=== PATIENT | male | born 1990 | race Caucasian/White ===

== ENCOUNTER 2020-09-03 18:26 | Emergency (ER) | payer OTHER ==
[2020-09-03] MEDS ORDERED: HYDROmorphone 1 MG/ML Syringe ONE (18:43)
[2020-09-03] MEDS ORDERED: HYDROmorphone 1 MG/ML Syringe IVPUSH ONE ×2 (18:47→19:25)
[2020-09-03] MEDS ORDERED: LORazepam 2 MG/ML SDV IVPUSH ONE (18:51)
[2020-09-03] MEDS ORDERED: LORazepam 2 MG/ML SDV ONE (18:52)
--- NOTE | 2020-09-03 19:07 | EDM.PDOC ---
<Harris Sierra - Last Filed: 09/03/20 21:19> ED HPI GENERAL MEDICAL PROBLEM - General Chief Complaint: Back Pain or Injury Stated Complaint: BACK PAIN FROM FALL Time Seen by Provider: 09/03/20 18:44 - Related Data Allergies Allergy/AdvReac Type Severity Reaction Status Date / Time No Known Allergies Allergy Verified 09/03/20 18:38 Home Meds: Home Meds Acetaminophen/HYDROcodone [Franklin 325-10 MG] 1 tab PO Q4H PRN 3 Days #14 tab 09/03/20 [Rx] Chlorzoxazone 500 mg PO TID PRN 3 Days #14 tablet 09/03/20 [Rx] Cyclobenzaprine [Flexeril] 10 mg PO TID PRN 3 Days #14 tab 09/03/20 [Rx] Course - Vital Signs Text/Narrative:: 1914 I accepted this patient from my partner who shift ended. The patient is e xperiencing back pain but no acute neurologic deficit. His pain is partially relieved with the medications provided earlier. He is ready to go to CT. CT lab and a reexam indicate no significant internal injury or fracture. Patient was discharged in satisfactory condition and told that if he ended up being on pain medicine or muscle relaxers are having significant limitation past 3 days he needed to be seen by someone else. I gave him a work note for 3 days and advised to follow-up in the clinic. Departure - Departure Time of Disposition: 21:30 Disposition: Home, Self-Care 01 Condition: Good Clinical Impression: Fall, Contusion of lower back, Contusion, hip - Discharge Information Prescriptions: Chlorzoxazone 500 mg PO TID PRN 3 Days #14 tablet PRN Reason: Spasms Cyclobenzaprine [Flexeril] 10 mg PO TID PRN 3 Days #14 tab PRN Reason: Spasms Acetaminophen/HYDROcodone [Franklin 325-10 MG] 1 tab PO Q4H PRN 3 Days #14 tab PRN Reason: Pain (Severe 7-10) Instructions: Hip Sprain, Back Exercises, [id number] Referrals: PCP,None [Primary Care Provider] - Forms: ED Department Discharge Additional Instructions: It is unlikely you will have any significant spinal cord involvement in this injury based on the CT scans and exam. If you lose control of your bowel or bladder, cannot feel the area where you sit or your legs, cannot move your legs thighs or feet, then you cannot wait to see if it gets better but must return immediately and you would probably be flown for an urgent MRI. Again, this is very unlikely and I do not expect this to happen. Fact the more active you are with flexion and movement the better you will be in the long- term. Urgency department can only suggest 3 days off to take pain medicine and muscle relaxers. You may need more than that. Call the clinic tomorrow and make an appointment for Monday so that they can reexamine and release you for full duty. [facility] [address] [place] [id number] [facility] [address] [place] [id number] [facility] Professional Building [address] [place] [address], [address] [place] [address] The following information is given to patients seen in the emergency department who are being discharged to home. This information is to outline your options for follow-up care. We provide all patients seen in our emergency department with a follow-up referral. The need for follow-up, as well as the timing and circumstances, are variable depending upon the specifics of your emergency department visit. If you don't have a primary care physician on staff, we will provide you with a referral. We always advise you to contact your personal physician following an emergency department visit to inform them of the circumstance of the visit and for follow-up with them and/or the need for any referrals to a consulting specialist. The emergency department will also refer you to a specialist when appropriate. This referral assures that you have the opportunity for follow-up care with a specialist. All of these measure are taken in an effort to provide you with optimal care, which includes your follow-up. Under all circumstances we always encourage you to contact your private physician who remains a resource for coordinating your care. When calling for follow-up care, please make the office aware that this follow-up is from your recent emergency room visit. If for any reason you are refused follow-up, please contact the [facility] Emergency Department at and asked to speak to the emergency department charge nurse. <Chandra Friedman - Last Filed: 09/04/20 07:06> ED HPI GENERAL MEDICAL PROBLEM - History of Present Illness INITIAL COMMENTS - FREE TEXT/NARRATIVE: CHIEF COMPLAINT(S): Fall HISTORY OF PRESENT ILLNESS: This is a 30-year-old man with a past medical history of asthma who comes to the emergency department with a chief complaint of fall. 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 He states that he landed on his feet and he is experiencing extreme back pain and right hip pain. He denies any bowel incontinence or urinary retention. He denies any neck pain, chest pain, abdominal pain, nausea or vomiting. He denies any use of oral anticoagulation. He rates his pain as 10 out of 10 and located directly over his thoracic and lumbar spine. He denies any radiation of the pain. He states that the pain is constant. He denies any relieving symptoms. He states that it is exacerbated by movement. The patient denies any head injury or loss of consciousness. REVIEW OF SYSTEMS: Constitutional: Denies fever, chills. Eyes: Denies eye pain Ears, Nose, Mouth, & Throat: Denies earache Cardiovascular: Denies chest pain Respiratory: Denies shortness of breath Gastrointestinal: Denies Nausea, vomiting, diarrhea, hematochezia. Bowel incontinence, abdominal pain Genitourinary: Denies hematuria urinary incontinence MSK: Positive for back and hip pain. Neurological: Denies blurred vision numbness, tingling, weakness Psychiatric: Denies depression PAST MEDICAL HISTORY: As per history of present illness and as reviewed below otherwise noncontributory. SURGICAL HISTORY: As per history of present illness and as reviewed below otherwise noncontributory. SOCIAL HISTORY: As per history of present illness and as reviewed below otherwise noncontributory. FAMILY HISTORY: As per history of present illness and as reviewed below otherwise noncontributory. EXAMINATION OF ORGAN SYSTEMS/BODY AREAS: Constitutional: Blood pressure is 137/91, heart rate 90, respiratory rate 20 with an oxygen saturation 100% on room air. Temperature 37.4 General: Young man who is visibly in pain. Psychiatric: Appropriate mood and affect. Eyes: No scleral icterus or conjunctival erythema pupils equal round reactive to light. Extraocular movements intact. ENMT: Moist mucous membranes. No pharyngeal erythema no blood in the oropharynx or missed or chipped teeth. Cardiovascular: Regular, rate, and rhythm. No gallops, murmurs, or rubs. Bilateral upper extremity and lower extremity pulses symmetric and intact. No peripheral edema. No JVD. Respiratory: Lungs clear to auscultation bilaterally. No wheezes, rales, or rhonchi. Gastrointestinal: Soft, non-tender, non-distended. Normoactive bowel sounds no rebound or guarding Genitourinary: No suprapubic tenderness Musculoskeletal: There is tenderness to palpation along the right hip extending posteriorly. There is some midline thoracic and lumbar tenderness. No midline cervical tenderness. Skin: There is an area of bruising on the patient's right posterior flank. Neurological: Alert, GCS 15 distal sensation is intact in all distribution in all extremities. Strength exam limited secondary to pain. MEDICAL DECISION MAKING AND COURSE IN THE ED WITH INTERPRETATION/REVIEW OF DIAGNOSTIC STUDIES: This is a 30-year-old man and with a past medical history of asthma who comes to the emergency department with back pain and right hip pain status post fall from 6 feet onto his feet. At this time given his fall and d egree of pain we will obtain CT C-spine, CT thoracic spine, and CT lumbar spine. Will obtain a pelvic x-ray to evaluate for hip or pelvic fracture. Given the bruising on it exam we will obtain a CT abdomen pelvis with IV contrast for further evaluation of intra-abdominal pathology. Will obtain labs including CBC, CMP, lipase, and coags. We will provide the patient with 1 mg of IV Dilaudid and 2 mg of IV Ativan. DISPOSITION: Patient was signed out to oncoming night team physician pending laboratory analysis and imaging CONDITION: Fair PROCEDURES: None FINAL IMPRESSION(S)/DIAGNOSES: 1. Acute mechanical fall 2. Acute thoracic back pain 3. Acute lumbar back pain 4. Acute right hip pain 5. Acute right flank ecchymosis Chandra Friedman M.D. Middle Back Pain Score (Numeric/FACES): 10 Past Medical History - Past Health History Medical/Surgical History: Denies Medical/Surgical History - Infectious Disease History Infectious Disease History: Reports: None Social & Family History - Tobacco Use Tobacco Use Status *Q: Current Every Day Tobacco User Years of Tobacco use: 16 Packs/Tins Daily: 1 - Caffeine Use Caffeine Use: Reports: None - Recreational Drug Use Recreational Drug Use: No ED ROS GENERAL - Review of Systems Review Of Systems: See Below ED EXAM, GENERAL - Physical Exam Exam: See Below Course - Vital Signs Last Recorded V/S: Last Vital Signs Temp 37.4 C 09/03/20 18:39 Pulse 96 09/03/20 21:40 Resp 18 09/03/20 21:40 BP 117/53 L 09/03/20 21:40 Pulse Ox 99 09/03/20 21:40 - Orders/Labs/Meds Labs: Laboratory Tests 09/03/20 09/03/20 09/03/20 Range/Units 18:46 18:46 18:46 WBC 11.20 H (4.0-11.0) K/uL RBC 5.39 (4.50-5.90) M/uL Hgb 14.3 (13.0-17.0) g/dL Hct 43.9 (38.0-50.0) % MCV 81.4 (80.0-98.0) fL MCH 26.5 L (27.0-32.0) pg MCHC 32.6 (31.0-37.0) g/dL RDW Std Deviation 41.3 (28.0-62.0) fl RDW Coeff of Rubio 14 (11.0-15.0) % Plt Count 238 (150-400) K/uL MPV 10.20 (7.40-12.00) fL Neut % (Auto) 63.8 (48.0-80.0) % Lymph % (Auto) 27.1 (16.0-40.0) % Barnes % (Auto) 7.6 (0.0-15.0) % Eos % (Auto) 1.1 (0.0-7.0) % Baso % (Auto) 0.4 (0.0-1.5) % Neut # (Auto) 7.1 H (1.4-5.7) K/uL Lymph # (Auto) 3.0 H (0.6-2.4) K/uL Barnes # (Auto) 0.9 H (0.0-0.8) K/uL Eos # (Auto) 0.1 (0.0-0.7) K/uL Baso # (Auto) 0.1 (0.0-0.1) K/uL Nucleated RBC % 0.0 /100WBC Nucleated RBCs # 0 K/uL INR 1.00 Sodium 139 (136-148) mmol/L Potassium 3.8 (3.5-5.1) mmol/L Chloride 103 (98-107) mmol/L Carbon Dioxide 25.1 (21.0-32.0) mmol/L BUN 20 H (7.0-18.0) mg/dL Creatinine 0.9 (0.8-1.3) mg/dL Est Cr Clr Drug Dosing 122.79 mL/min Estimated GFR (MDRD) > 60.0 ml/min Glucose 111 H (74-106) mg/dL Calcium 9.3 (8.5-10.1) mg/dL Total Bilirubin 0.2 (0.2-1.0) mg/dL AST 31 (15-37) IU/L ALT 72 H (14-63) IU/L Alkaline Phosphatase 75 (46-116) U/L Total Protein 7.8 (6.4-8.2) g/dL Albumin 4.5 (3.4-5.0) g/dL Globulin 3.3 (2.6-4.0) g/dL Albumin/Globulin Ratio 1.4 (0.9-1.6) Lipase 129 (73-393) U/L Blood Type Antibody Screen 09/03/20 Range/Units 19:16 WBC (4.0-11.0) K/uL RBC (4.50-5.90) M/uL Hgb (13.0-17.0) g/dL Hct (38.0-50.0) % MCV (80.0-98.0) fL MCH (27.0-32.0) pg MCHC (31.0-37.0) g/dL RDW Std Deviation (28.0-62.0) fl RDW Coeff of Rubio (11.0-15.0) % Plt Count (150-400) K/uL MPV (7.40-12.00) fL Neut % (Auto) (48.0-80.0) % Lymph % (Auto) (16.0-40.0) % Barnes % (Auto) (0.0-15.0) % Eos % (Auto) (0.0-7.0) % Baso % (Auto) (0.0-1.5) % Neut # (Auto) (1.4-5.7) K/uL Lymph # (Auto) (0.6-2.4) K/uL Barnes # (Auto) (0.0-0.8) K/uL Eos # (Auto) (0.0-0.7) K/uL Baso # (Auto) (0.0-0.1) K/uL Nucleated RBC % /100WBC Nucleated RBCs # K/uL INR Sodium (136-148) mmol/L Potassium (3.5-5.1) mmol/L Chloride (98-107) mmol/L Carbon Dioxide (21.0-32.0) mmol/L BUN (7.0-18.0) mg/dL Creatinine (0.8-1.3) mg/dL Est Cr Clr Drug Dosing mL/min Estimated GFR (MDRD) ml/min Glucose (74-106) mg/dL Calcium (8.5-10.1) mg/dL Total Bilirubin (0.2-1.0) mg/dL AST (15-37) IU/L ALT (14-63) IU/L Alkaline Phosphatase (46-116) U/L Total Protein (6.4-8.2) g/dL Albumin (3.4-5.0) g/dL Globulin (2.6-4.0) g/dL Albumin/Globulin Ratio (0.9-1.6) Lipase (73-393) U/L Blood Type O POSITIVE Antibody Screen NEGATIVE Meds: Medications Discontinued Medications Generic Name Dose Route Start Last Admin Trade Name Freq PRN Reason Stop Dose Admin Hydromorphone HCl Confirm 09/03/20 18:43 09/03/20 18:50 Dilaudid Administered 09/03/20 18:44 Not Given Dose 1 mg .ROUTE .STK-MED ONE Hydromorphone HCl 1 mg 09/03/20 18:47 09/03/20 18:50 Dilaudid IVPUSH 09/03/20 18:48 1 mg ONETIME ONE Administration Hydromorphone HCl 1 mg 09/03/20 19:25 09/03/20 19:31 Dilaudid IVPUSH 09/03/20 19:26 1 mg ONETIME ONE Administration Iopamidol 100 ml 09/03/20 20:03 09/03/20 20:03 Isovue Multipack-370 (76%) IVPUSH 09/03/20 20:04 100 ml ONETIME STA Administration Lorazepam 2 mg 09/03/20 18:51 09/03/20 18:52 Ativan IVPUSH 09/03/20 18:52 2 mg ONETIME ONE Administration Lorazepam Confirm 09/03/20 18:52 09/03/20 18:55 Ativan Administered 09/03/20 18:53 Not Given Dose 2 mg .ROUTE .STK-MED ONE Ondansetron HCl 4 mg 09/03/20 19:25 09/03/20 19:29 Zofran IVPUSH 09/03/20 19:26 4 mg ONETIME ONE Administration Sepsis Event Note (ED) - Evaluation Sepsis Screening Result: No Definite Risk - Focused Exam Vital Signs: Vital Signs Pulse Resp BP Pulse Ox 09/03/20 21:40 96 18 117/53 L 99 09/03/20 20:52 70 16 117/80 96 09/03/20 20:08 84 16 114/66 95 09/03/20 19:10 83 16 109/70 96
[2020-09-03 19:17] LABS: BLOOD UREA NITROGEN,BUN 20 mg/dL (7.0-18.0); CARBON DIOXIDE,CO2 25.1 mmol/L (21.0-32.0); CHLORIDE,CL 103 mmol/L (98-107); GLUCOSE RANDOM 111 mg/dL (74-106); LIPASE 129 U/L (73-393); POTASSIUM,K 3.8 mmol/L (3.5-5.1); SODIUM,NA 139 mmol/L (136-148)
--- NOTE | 2020-09-03 19:24 | CR ---
INDICATION: Fall from 6 feet onto back, pain in right hip. TECHNIQUE: AP pelvis. COMPARISON: None. FINDINGS: No acute fracture. The hips appear normally aligned. The sacroiliac joints are normal in appearance. Pelvic phlebolith. Soft tissues are unremarkable. IMPRESSION: No acute findings. Dictated by Josiane Mandel MD @ Sep 03 2020 7:21PM Signed by Dr. Josiane Mandel @ Sep 03 2020 7:22PM
[2020-09-03] MEDS ORDERED: Ondansetron 4 MG/2 ML SDV IVPUSH ONE (19:25)
[2020-09-03] MEDS ORDERED: Iopamidol 755 MG/ML 500 ML Multipack Bottle IVPUSH STA (20:03)
--- NOTE | 2020-09-03 20:19 | CT ---
INDICATION: Cervical spine injury from fall TECHNIQUE: CT cervical spine without i.v. contrast. Coronal and sagittal reformats were obtained. COMPARISON: None FINDINGS: Alignment: Unremarkable. Bone: No acute fractures or aggressive bone lesions are identified. Disc: The disc spaces are unremarkable in appearance. The facet joints are unremarkable. Soft tissue: The prevertebral soft tissues are unremarkable in appearance. The visualized lung apices and mediastinum are unremarkable. IMPRESSION: 1. No acute osseous injuries are identified. Please note that all CT scans at this facility use dose modulation, iterative reconstruction, and/or weight-based dosing when appropriate to reduce radiation dose to as low as reasonably achievable. Dictated by: Suman Samano MD @ 09/03/2020 20:18:11 (Electronically Signed)
--- NOTE | 2020-09-03 20:29 | CT ---
INDICATION: Pain after fall COMPARISON: None available TECHNIQUE: CT examination of the abdomen and pelvis was performed with the uneventful intravenous administration of 100 cc of Isovue 370 while 3 mm thick axial sections were obtained from the lung bases through the pubic symphysis. Oral contrast was not administered. Please note that all CT scans at this facility use dose modulation, iterative reconstruction, and/or weight-based dosing when appropriate to reduce radiation dose to as low as reasonably achievable. FINDINGS: In the abdomen, the liver, spleen, pancreas, and adrenals are normal in appearance. The kidneys are normal in appearance. The gallbladder is normal in appearance. The abdominal aorta is normal in caliber with no sign of dilatation. There is no sign of retroperitoneal mass or adenopathy. The stomach, loops of small bowel, and colon in the abdomen are normal in appearance. In the pelvis, the appendix is normal in appearance with no sign of inflammatory process. The loops of small bowel and colon in the pelvis are normal in appearance. The uterus and adnexal regions are normal in appearance. The urinary bladder is normal in appearance. There is no sign of pelvic or inguinal mass or adenopathy. There is no sign of free air or free fluid in the abdomen or pelvis. The lung bases are clear. There is mild scoliosis of the thoracolumbar spine convex towards the left. There is no sign of fracture, dislocation, or destructive lesion involving the lumbar spine, pelvis, and hips. IMPRESSION: No sign of acute traumatic injury to the abdomen or pelvis. Normal CT of the abdomen with contrast. Normal CT of the pelvis with contrast. Mild scoliosis of the thoracolumbar spine convex towards the left. Please note that all CT scans at this facility use dose modulation, iterative reconstruction, and/or weight-based dosing when appropriate to reduce radiation dose to as low as reasonably achievable. Dictated by Ziggy Santizo MD @ Sep 03 2020 8:22PM Signed by Dr. Ziggy Santizo @ Sep 03 2020 8:29PM
--- NOTE | 2020-09-03 20:38 | CT ---
INDICATION: Pain after fall COMPARISON: None available TECHNIQUE: : CT examination of the chest was performed with the uneventful intravenous administration of Isovue 370 as part of the accompanying CT of the abdomen and pelvis while 3 mm thick axial sections were obtained from above the apices of the lungs to the lung bases. Please note that all CT scans at this facility use dose modulation, iterative reconstruction, and/or weight-based dosing when appropriate to reduce radiation dose to as low as reasonably achievable. FINDINGS: : The lungs are clear with no sign of significant infiltrate or mass. There is no sign of pneumothorax, pulmonary contusion, pleural hematoma, or pleural effusion. There is no sign of mediastinal or hilar mass or adenopathy. The heart is normal in appearance for the patient`s age, as are the aorta and other ascending great vessels. There is no sign of supraclavicular or axillary mass or adenopathy. The visualized superior liver, spleen, pancreas, kidneys, and adrenals are normal in appearance. There is mild scoliosis of the mid thoracic spine convex towards the right. There is no sign of fracture of the visualized shoulder girdle, ribs, sternum, manubrium, or thoracic spine. There is mild deformity of the superior sternal body, without any fracture lines, and without any parasternal hematoma, findings of an old, healed sternal fracture. IMPRESSION: No sign of acute traumatic injury to the chest. Mild deformity of the superior sternal body consistent with an old, healed fracture. No sign of any acute fracture lines or parasternal hematoma to suggest that this is an acute fracture. Please note that all CT scans at this facility use dose modulation, iterative reconstruction, and/or weight-based dosing when appropriate to reduce radiation dose to as low as reasonably achievable. Dictated by Ziggy Santizo MD @ Sep 03 2020 8:22PM Signed by Dr. Ziggy Santizo @ Sep 03 2020 8:36PM
--- NOTE | 2020-09-03 20:42 | CT ---
INDICATION: Pain after fall COMPARISON: CT of the chest and abdomen from today. TECHNIQUE: CT examination of the thoracic spine was performed without contrast enhancement using the spiral CT data from the accompanying body CT scans. 3 mm thick axial, sagittal and coronal reconstructions were made from the base of the neck through the superior lumbar spine. Please note that all CT scans at this facility use dose modulation, iterative reconstruction, and/or weight-based dosing when appropriate to reduce radiation dose to as low as reasonably achievable. FINDINGS: : There is no sign of fracture or subluxation. The thoracic vertebral bodies and intervertebral discs are normal in height and are in anatomic alignment. There is no sign of paraspinous soft tissue swelling. There is a minimal S-shaped scoliosis with the mid thoracic curve convex toward the right and the thoracolumbar curve convex towards the left. The visualized mediastinal structures are normal in appearance. The visualized lung is clear. The visualized superior liver, spleen, pancreas, kidneys, and adrenals are normal in appearance. IMPRESSION: No sign of acute osseous injury to the thoracic spine. Minimal S-shaped scoliosis of the thoracic and thoracolumbar spine. Please note that all CT scans at this facility use dose modulation, iterative reconstruction, and/or weight-based dosing when appropriate to reduce radiation dose to as low as reasonably achievable. Dictated by Ziggy Santizo MD @ Sep 03 2020 8:22PM Signed by Dr. Ziggy Santizo @ Sep 03 2020 8:40PM
--- NOTE | 2020-09-03 20:46 | CT ---
INDICATION: Pain after fall COMPARISON: CT of the abdomen and pelvis from today. TECHNIQUE: CT examination of the lumbar spine is performed using the spiral CT data from the accompanying body CT scans. 3 mm thick axial, sagittal and coronal reconstructions were made. Please note that all CT scans at this facility use dose modulation, iterative reconstruction, and/or weight-based dosing when appropriate to reduce radiation dose to as low as reasonably achievable. FINDINGS: : There is deformity of the anterior superior L5 vertebral body with sclerosis, consistent with an old mild anterior superior endplate fracture. There is mild L4-5 disc degenerative disease. The vertebral bodies are otherwise normal in height and they are in anatomic alignment. There is no sign of acute fracture or subluxation. There is mild L5-S1 disc degenerative disease. No foraminal stenosis is evident. The visualized abdominal viscera is normal in appearance. IMPRESSION: No sign of acute osseous injury to the lumbar spine. Old mild anterior superior L5 endplate fracture. Mild disc degenerative disease at L4-5 and L5-S1. Please note that all CT scans at this facility use dose modulation, iterative reconstruction, and/or weight-based dosing when appropriate to reduce radiation dose to as low as reasonably achievable. Dictated by Ziggy Santizo MD @ Sep 03 2020 8:29PM Signed by Dr. Ziggy Santizo @ Sep 03 2020 8:44PM
== END 2020-09-03 21:50 | disposition home or self-care (01) ==
LOC: MW.ED 18:26
DX: S30.0XXA Contusion of lower back and pelvis, initial encounter (principal); S70.01XA Contusion of right hip, initial encounter; S30.1XXA Contusion of abdominal wall, initial encounter; M54.6 Pain in thoracic spine; J45.909 Unspecified asthma, uncomplicated; Z72.0 Tobacco use; W17.89XA Other fall from one level to another, initial encounter; Y99.0 Civilian activity done for income or pay
CPT/HCPCS: 36415; 71260; 72125; 72170; 74177; 80053; 83690; 85025; 85610; 86850; 86900; 86901; 96374; 96375; 96376; 99284; J1170; J2060; J2405; Q9967; 72128-26; 72131-26; 99283

== ENCOUNTER 2024-07-03 00:30 | Emergency (ER) | payer BC, OTHER ==
[2024-07-03 00:43] LABS: BASOPHILS ABSOLUTE AUTO 0.14 K/uL (0.00-0.20); BASOPHILS PERCENT AUTO 1.1 % (0.0-1.0); EOSINOPHILS PERCENT AUTO 4.5 % (0.0-6.0); HEMOGLOBIN 14.6 g/dL (14.0-18.0); IMMATURE GRAN ABSOLUTE AUTO 0.06 K/uL (0.00-0.05); IMMATURE GRAN PERCENT AUTO 0.5 % (0.0-0.4); LYMPHOCYTES ABSOLUTE AUTO 5.25 K/uL (1.00-4.80); LYMPHOCYTES PERCENT AUTO 39.4 % (24.0-44.0); MEAN CORPUSCULAR HEMOGLOBIN 25.8 pg (28.0-32.0); MEAN CORPUSCULAR HGB CONC 32.4 g/dL (32.0-36.0); MEAN CORPUSCULAR VOLUME 79.6 fL (83.0-99.0); MEAN PLATELET VOLUME 10.1 fL (9.4-12.4); MONOCYTES PERCENT AUTO 8.3 % (0.0-8.0); NEUTROPHILS ABSOLUTE AUTO 6.16 K/uL (1.80-7.70); NEUTROPHILS PERCENT AUTO 46.2 % (41.0-71.0); PLATELET COUNT,PLT 307 K/uL (150-400); RED BLOOD CELL COUNT 5.65 M/uL (4.52-5.90); WHITE BLOOD CELL COUNT,WBC 13.31 K/uL (3.9-11.3)
[2024-07-03] MEDS ORDERED: Sodium Chloride 0.9% 10 ML Syringe FLUSH PRN (00:56)
[2024-07-03 01:22] LABS: A/G RATIO 1.2 (0.9-1.6); ALBUMIN 4.4 g/dL (3.4-5.0); BILIRUBIN TOTAL 0.4 mg/dL (0.2-1.0); CALCIUM 9.5 mg/dL (8.5-10.1); CARBON DIOXIDE,CO2 29.9 mmol/L (21.0-32.0); EST CRCL DRUG DOSING (CG) 107.47 mL/min; MAGNESIUM 2.3 mg/dL (1.8-2.4); POTASSIUM,K 3.8 mmol/L (3.5-5.1)
== END 2024-07-03 01:55 | disposition home or self-care (01) ==
LOC: MW.ED 00:30
DX: R07.2 Precordial pain (principal); F43.9 Reaction to severe stress, unspecified; F12.90 Cannabis use, unspecified, uncomplicated; F17.200 Nicotine dependence, unspecified, uncomplicated
CPT/HCPCS: 36415; 71045; 71045-26; 80053; 83690; 83735; 83880; 84484; 85025; 93005; 99285